=== PATIENT | male | born 1990 | race African-American/Black ===

== ENCOUNTER 2019-03-26 17:15 | Emergency (ER) | payer OTHER ==
[~2019-03-26 17:15] MED LIST: ISOVUE-370 76%-LOCM 1 ML ONE
--- NOTE | 2019-03-26 18:15 | CT ---
EXAM: Brain CTWithout contrast: HISTORY: Headache COMPARISON: None FINDINGS: No focal mass or midline shift. No intra or extra-axial hemorrhage. Sinuses and mastoids are clear of acute process. IMPRESSION: No mass or bleed or other significant acute intracranial process.
--- NOTE | 2019-03-26 18:26 | RAD ---
EXAM: Chest one view: HISTORY: Headache chest pain COMPARISON: 06/07/2017 FINDINGS: Minimal bilateral pleural thickening and costophrenic angle blunting, stable Heart size: Borderline enlarged. Lungs: Clear of acute process. No evidence for pneumonia, pleural effusion, acute edema, or pneumothorax, or other significant acute process. IMPRESSION: No significant acute intrathoracic disease.
[2019-03-26 18:29] LABS: #Lymphocytes 0.9 thou/uL (1.20-3.40); #Monocytes 0.3 thou/uL (0.11-0.59); #Neutrophils 2.5 thou/uL (1.40-6.50); %Basophils 0.4 % (0.0-1.0); %Eosinophils 0.1 % (0.0-10.0); %Lymphocytes 24.9 % (21.0-51.0); %Monocytes 7.6 % (0.0-10.0); Hemoglobin 13.1 g/dL (14.0-18.0); Mean Corpuscular HGB CONC 33.3 g/dL (32.0-36.0); Mean Platelet Volume 7.3 fL (7.4-10.4); Platelet Count 220 thou/uL (130-400); RBC Distribution Width 11.2 % (11.5-14.5); White Blood Cell (WBC) Count 3.7 thou/uL (4.8-10.8)
--- NOTE | 2019-03-26 18:47 | CT ---
EXAM: CT ANGIOGRAM OF THE CHEST 03/26/19 HISTORY: Headache. Chest pain. COMPARISON: None. TECHNIQUE: CT angiogram of the chest is performed in the axial plane. Three dimensional reformatted images are s ubmitted for interpretation. FINDINGS: Trachea and central bronchi are patent. There appears to be calcification with scarring and likely ch ronic change involving the right lower lobe adjacent to the right hemidiaphragm. There does appear to be associated soft tissue mass with solid attenuation measuring 2.9 x 1.9 cm. Additional linear opac ities in the lung parenchyma likely represents scar or atelectasis. No pleural effusion or pneumothorax. There are mildly enlarged left axillary lymph nodes and left subpectoral lymph nodes. [facility] lymph node measures 2.1 x 1.2 cm. No mediastinal mass, lymphadenopathy or hematoma. Heart size is within normal limits. No significant pericardial fluid. The visualized aorta has a normal caliber. No periaortic fat stranding. The visualized upper solid organs are unremarkable. Adequate contrast opacification of the pulmonary arterial system to the level of the segmental arteri es. No filling defect to suggest thromboembolism. IMPRESSION: 1. No evidence of pulmonary artery embolism to the level of the segmental arteries. 2. Presumed chronic changes involving the right lower lobe with a soft tissue mass with coarse c alcifications. Correlate clinically. 3. Enlarged left axillary lymph nodes which may be reactive. Correlate clinically. POS: PPP
[2019-03-26 18:51] LABS: ALT (SGPT) 38 U/L (8-55); AST (SGOT) 25 U/L (5-34); Albumin 4.2 g/dL (3.5-5.0); Alkaline Phosphatase 96 U/L (40-150); Anion Gap 16 mmol/L (10-20); BUN (Urea Nitrogen) 9 mg/dL (8.9-20.6); Bilirubin, Total 0.5 mg/dL (0.2-1.2); Calc. Creatinine Clearance 0 mL/min (70-130); Carbon Dioxide 22 mmol/L (22-29); Chloride 106 mmol/L (98-107); Estimated GFR-MDRD 87; Globulin 3.4 g/dL (2.4-3.5); Glucose 93 mg/dL (70-105); Potassium 3.8 mmol/L (3.5-5.1); Protein, Total 7.6 g/dL (6.0-8.3); Sodium 140 mmol/L (136-145)
[2019-03-26] MEDS ORDERED: Metoclopramide HCl 10 MG/2 ML VIAL ONE (19:49)
[2019-03-26] MEDS ORDERED: diphenhydrAMINE 50 MG/ML VIAL ONE (19:49)
[2019-03-26 21:47] LABS: Troponin I 0.019 ng/mL (< 0.028)
== END 2019-03-26 23:01 ==
LOC: ERS 17:15
DX: R07.9 Chest pain, unspecified (principal); R51 Headache; S00.81XA Abrasion of other part of head, initial encounter; I10 Essential (primary) hypertension; F41.9 Anxiety disorder, unspecified; Z79.899 Other long term (current) drug therapy; X58.XXXA Exposure to other specified factors, initial encounter
CPT/HCPCS: 36415; 70450; 71045; 71275; 80053; 83880; 84484; 85025; 93005; 96365; 96366; 96375; J1200; J2765; Q9966

== ENCOUNTER 2019-03-27 20:55 | Inpatient (IN) | payer OTHER ==
--- NOTE | 2019-03-27 21:24 | RAD ---
EXAM: Chest one view: HISTORY: Chest pain shortness of breath COMPARISON: 03/26/2019 FINDINGS: Stable bilateral pleural thickening and costophrenic angle blunting. Heart size: Within normal limits. Lungs: Clear of acute process. No evidence for pneumonia, pleural effusion, acute edema, or pneumothorax, or other significant acute process. IMPRESSION: No significant acute intrathoracic disease. Unchanged from prior study.
[2019-03-27] MEDS ORDERED: Ketorolac Tromethamine 30 MG/ML VIAL ONE (21:34)
[2019-03-27 21:51] LABS: #Lymphocytes 0.7 thou/uL (1.20-3.40); #Monocytes 0.2 thou/uL (0.11-0.59); #Neutrophils 2.3 thou/uL (1.40-6.50); %Basophils 0.2 % (0.0-1.0); %Eosinophils 0.4 % (0.0-10.0); %Lymphocytes 23.1 % (21.0-51.0); %Monocytes 4.7 % (0.0-10.0); %Neutrophils 71.5 % (42.0-75.0); Hemoglobin 12.2 g/dL (14.0-18.0); Mean Corpuscular HGB CONC 33.1 g/dL (32.0-36.0); Mean Corpuscular Hemoglobin 27.8 pg (27.0-31.0); Mean Corpuscular Volume 84.2 fL (78.0-98.0); Mean Platelet Volume 7.5 fL (7.4-10.4); Platelet Count 149 thou/uL (130-400); RBC Distribution Width 11.1 % (11.5-14.5); White Blood Cell (WBC) Count 3.2 thou/uL (4.8-10.8)
[2019-03-27 22:14] LABS: ALT (SGPT) 67 U/L (8-55); AST (SGOT) 80 U/L (5-34); Albumin 3.6 g/dL (3.5-5.0); Alkaline Phosphatase 96 U/L (40-150); Anion Gap 13 mmol/L (10-20); BUN (Urea Nitrogen) 9 mg/dL (8.9-20.6); Bilirubin, Total 1.4 mg/dL (0.2-1.2); CK (CPK) 262 U/L (30-200); Calc. Creatinine Clearance 0 mL/min (70-130); Calcium 7.9 mg/dL (7.8-10.44); Carbon Dioxide 18 mmol/L (22-29); Chloride 104 mmol/L (98-107); Estimated GFR-MDRD Greater than 90; Globulin 2.8 g/dL (2.4-3.5); Glucose 103 mg/dL (70-105); Potassium 3.3 mmol/L (3.5-5.1); Protein, Total 6.4 g/dL (6.0-8.3); Sodium 132 mmol/L (136-145)
[2019-03-27 23:24] LABS: Color Of CSF Supernatant COLORLESS (Colorless); Tube # 2; Unspun CSF Color COLORLESS (Colorless)
[2019-03-27] MEDS ORDERED: cefTRIAXone\\ROCEPHIN 2 GM VIAL ONE (23:29)
[2019-03-27 23:34] LABS: CSF Source CSF; Clarity Clear (Clear); RBC Count - Manual 2500 /cumm (None Seen); Tube # 4; WBC/NonHematics Count - Manual 0 /cumm (0-5)
[2019-03-27 23:39] LABS: CSF, Glucose 70 mg/dl (40-70); CSF, Protein 25 mg/dL (15-40)
[2019-03-27 23:46] LABS: CSF Source CSF; Clarity Clear (Clear); Tube # 1
[2019-03-27 23:47] LABS: RBC Count - Manual 192 /cumm (None Seen); WBC/NonHematics Count - Manual 2 /cumm (0-5)
[2019-03-27 23:58] LABS: Bilirubin Negative (Negative); Blood, Urine Negative (Negative); Clarity CLEAR (Clear); Glucose, Urine (Dipstick) Negative (Negative); Leukocyte Negative (Negative); Nitrite Negative (Negative); Protein, Urine (Dipstick) Negative (Neg-Trace)
[2019-03-28] MEDS ORDERED: Ondansetron PF 4 MG/2 ML Vial IVP PRN (01:32)
[2019-03-28] MEDS ORDERED: Ondansetron ODT 4 MG TAB SL PRN (01:32)
[2019-03-28] MEDS ORDERED: Acetaminophen 325 MG TAB PO PRN (01:32)
[2019-03-28 01:37] VITALS: BMI 34.0
[2019-03-28] MEDS ORDERED: Lactated Ringer's 1,000 ML IV SCH ×3 (02:00→18:45)
[2019-03-28] MEDS: Acetaminophen 325 MG TAB PO PRN ×2 (02:52→16:07)
[2019-03-28] MEDS: Ondansetron ODT 4 MG TAB PO PRN (03:18)
--- NOTE | 2019-03-28 03:29 | PDOC.FPRHP ---
- History of Present Illness Chief Complaint: fever, headache, dizziness History of Present Illness: Pt is a pleasant 28yo AAM with h/o of seizure disorder and HTN who presents with 3 day history of subjective fever with chills and night sweats, headache, dizziness upon standing, and nausea without vomiting. Headache is described as a dull pressure, over the entire head, rated 6/10, worsening with standing, and relieved by lying down and Tylenol. He also endorses non-bloody diarrhea up to 4 times daily for the past 2 days. He endorses blurred vision upon standing and mild neck stiffness, but no photophobia. He denies any known sick contacts, recently illness, or rashes. Patient was seen in ED yesterday with similar symptoms. At that time he was offered LP which was declined and pt opted to go home. On ROS he endorses mild, sharp, midsternal chest pain, occuring at rest, lasting 2-3 seconds, and associated with mild shortness of breath. Pain is not brought on by exercise. ED Course: In ED, LP showed red cells, WBC, and no bacteria on GS. Protein and glucose were WNL. CSF was sent for culture and pt was given rocephin to cover for possible meningitis. He was also given toradol which helped with his headache. All imaging was negative - Allergies/Adverse Reactions Allergies Allergy/AdvReac Type Severity Reaction Status Date / Time No Known Allergies Allergy Verified 03/28/19 02:32 - Home Medications Medication Instructions Recorded Confirmed Type FLUoxetine HCl [Prozac] 2 capsule PO HS 03/28/19 03/28/19 History Levetiracetam [levETIRAcetam] 500 mg PO BID 03/28/19 03/28/19 History Lisinopril [Zestril] 20 mg PO DAILY 03/28/19 03/28/19 History Metoprolol Tartrate 25 mg PO BID 03/28/19 03/28/19 History traZODone HCl [Trazodone HCl] 100 mg PO HS 03/28/19 03/28/19 History - History PMHx: HTN - controlled with metoprolol and lisinopril Seizures - controlled with Keppra, does not remember last time he had a seizure. PSHx: none FHx: Mother with HTN. No known family history of cardiac abnormalities. Social: Past history of tobacco use (1pk/week) but has since quit. No illicts or alcohol use. Currently incarcerated. - Review of Systems General: reports: fever/chills, night sweats, fatigue Eyes: reports: vision changes ENT: denies: nasal congestion, rhinorrhea Respiratory: reports: shortness of breath (associated with chest wall pain). denies: cough, congestion, exercise intolerance Cardiovascular: reports: chest pain. denies: palpitation, edema Gastrointestinal: reports: nausea, diarrhea. denies: vomiting, abdominal pain Genitourinary: denies: incontinence, dysuria Skin: denies: rashes, lesions Musculoskeletal: reports: stiffness. denies: pain, tenderness Neurological: denies: numbness, syncope, seizure, weakness - Vital signs BP: [108/66] HR: [100] RR: [16] Tmax: [98.7] Pox: [100]% on [RA] Wt: [122kg] - Physical Exam Constitutional: NAD, awake, alert and oriented, well developed HEENT: normocephalic and atraumatic, PERRLA, EOMI, no scleral icterus, grossly normal vision, grossly normal hearing, MMM Neck: supple, trachea midline Chest: no-tender to palpation Heart: RRR, normal S1/S2, no murmurs/rubs/gallops, pulses present Lungs: CTAB Abdomen: soft, non-tender, bowel sounds present Musculoskeletal: normal structure, normal tone Neurological: no focal deficit, CN II-XII intact, normal sensation Skin: no rash/lesions Psychiatric: normal mood and affect FMR H&P: Results - Labs Result Diagrams: 03/27/19 21:29 03/27/19 21: Lab results: WBC 3.2 thou/uL (4.8-10.8) L 03/27/19 21: Hgb 12.2 g/dL (14.0-18.0) L 03/27/19 21: Hct 37.0 % (42.0-52.0) L 03/27/19 21: MCV 84.2 fL (78.0-98.0) 03/27/19 21: Plt Count 149 thou/uL (130-400) 03/27/19 21: Neutrophils % 71.5 % (42.0-75.0) 03/27/19 21:29 Sodium 132 mmol/L (136-145) L 03/27/19 21:29 Potassium 3.3 mmol/L (3.5-5.1) L 03/27/19 21:29 Chloride 104 mmol/L (98-107) 03/27/19 21:29 Carbon Dioxide 18 mmol/L (22-29) L 03/27/19 21:29 BUN 9 mg/dL (8.9-20.6) 03/27/19 21:29 Creatinine 1.15 mg/dL (0.7-1.3) 03/27/19 21:29 Glucose 103 mg/dL (70-105) 03/27/19 21:29 Lactic Acid 1.7 mmol/L (0.5-2.2) 03/27/19 21:31 Calcium 7.9 mg/dL (7.8-10.44) 03/27/19 21:29 Total Bilirubin 1.4 mg/dL (0.2-1.2) H 03/27/19 21:29 AST 80 U/L (5-34) H 03/27/19 21:29 ALT 67 U/L (8-55) H 03/27/19 21:29 Alkaline Phosphatase 96 U/L (40-150) 03/27/19 21:29 Creatine Kinase 262 U/L (30-200) H 03/27/19 21:29 Serum Total Protein 6.4 g/dL (6.0-8.3) 03/27/19 21:29 Albumin 3.6 g/dL (3.5-5.0) 03/27/19 21:29 Urine Ketones Negative mg/dL (Negative) 03/27/19 23:40 Urine Blood Negative (Negative) 03/27/19 23:40 Urine Nitrite Negative (Negative) 03/27/19 23:40 Ur Leukocyte Esterase Negative (Negative) 03/27/19 23:40 - EKG Interpretation EKG: NSR, Rate 110, no ST or T wave changes, Normal axis. - Radiology Interpretation Chest x-ray Status: image reviewed by me, report reviewed by me Additional comment: Left costophrenic angle blunting. Overall increased bronchovascular markings bilaterally. No focal consolidation. FMR H&P: A/P - Problem List (1) Aseptic meningitis Current Visit: Yes Status: Suspected Code(s): G03.0 - NONPYOGENIC MENINGITIS (2) HTN (hypertension) Current Visit: Yes Status: Chronic Code(s): I10 - ESSENTIAL (PRIMARY) HYPERTENSION Qualifiers: Hypertension type: essential hypertension Qualified Code(s): I10 - Essential (primary) hypertension (3) Elevated LFTs Current Visit: Yes Status: Acute Code(s): R94.5 - ABNORMAL RESULTS OF LIVER FUNCTION STUDIES (4) Seizure disorder Current Visit: Yes Status: Chronic Code(s): G40.909 - EPILEPSY, UNSP, NOT INTRACTABLE, WITHOUT STATUS EPILEPTICUS (5) Anxiety with depression Current Visit: Yes Status: Chronic Code(s): F41.8 - OTHER SPECIFIED ANXIETY DISORDERS - Plan 1. Suspected aseptic meningitis - Given 2g Rocephin in ED. Will continue 1g IV daily until Cx negative. - Await CSF Cx and Blood Cx results - Will place on droplet precautions 2. Chronic HTN - Currently stable. Will restart home medications and monitor with q4h vitals. 3. Elevated LFT's - Unclear etiology at this time, yesterday these labs were normal. - Check HIV, Hep C, and RPR. - Recheck CMP in AM, consider further imaging pending results 4. Seizure Disorder - Chronic, Stable. Will continue home Keppra and monitor. 5. Depression and Anxiety -Chronic, stable. Will continue home Prozac and monitor. PPx SCD Diet heart healthy Code Full Disposition/LOS: Pt currently stable. Will expect hospitalization >48hours. Pending Cx results
[2019-03-28] MEDS: Ibuprofen 800 MG TAB PO PRN ×2 (05:16→23:38)
[2019-03-28 05:23] LABS: #Lymphocytes 0.4 thou/uL (1.20-3.40); #Monocytes 0.3 thou/uL (0.11-0.59); #Neutrophils 3.4 thou/uL (1.40-6.50); %Basophils 0.2 % (0.0-1.0); %Eosinophils 0.3 % (0.0-10.0); %Lymphocytes 10.2 % (21.0-51.0); %Monocytes 6.6 % (0.0-10.0); %Neutrophils 82.8 % (42.0-75.0); Hemoglobin 12.3 g/dL (14.0-18.0); Mean Corpuscular HGB CONC 32.7 g/dL (32.0-36.0); Mean Corpuscular Hemoglobin 27.5 pg (27.0-31.0); Mean Corpuscular Volume 84.1 fL (78.0-98.0); Mean Platelet Volume 7.5 fL (7.4-10.4); Platelet Count 137 thou/uL (130-400); RBC Distribution Width 11.1 % (11.5-14.5); Red Blood Cell (RBC) Count 4.49 mill/uL (4.70-6.10); White Blood Cell (WBC) Count 4.1 thou/uL (4.8-10.8)
[2019-03-28 05:43] LABS: ALT (SGPT) 67 U/L (8-55); AST (SGOT) 76 U/L (5-34); Albumin 3.5 g/dL (3.5-5.0); Alkaline Phosphatase 93 U/L (40-150); Anion Gap 11 mmol/L (10-20); BUN (Urea Nitrogen) 8 mg/dL (8.9-20.6); CK (CPK) 326 U/L (30-200); Calc. Creatinine Clearance 207 mL/min (70-130); Calcium 8.1 mg/dL (7.8-10.44); Carbon Dioxide 20 mmol/L (22-29); Chloride 107 mmol/L (98-107); Estimated GFR-MDRD Greater than 90; Globulin 2.7 g/dL (2.4-3.5); Glucose 102 mg/dL (70-105); Potassium 3.4 mmol/L (3.5-5.1); Protein, Total 6.2 g/dL (6.0-8.3); Sodium 135 mmol/L (136-145)
[2019-03-28 05:59] LABS: HIV (1/2) Antibody/Antigen Non-Reactive (NonReactive); HIV 1/2 INDEX 0.19 S/CO (<1.00); Hep C IgG Ab Non-Reactive (NonReactive)
[2019-03-28 06:06] LABS: Syphilis Antibody Index 14.24 S/CO (<1.00 Non-Reactive)
[2019-03-28] MEDS ORDERED: Magnesium 2 GM/50 ML 2 GM in Premix Bag 1 BAG IVPB SCH (08:30)
[2019-03-28] MEDS: Lisinopril 20 MG TAB PO SCH (08:43)
[2019-03-28] MEDS: levETIRAcetam 500 MG TAB PO SCH ×2 (08:43→20:06)
[2019-03-28] MEDS: Metoprolol Tartrate 25 MG TAB PO SCH ×2 (08:43→20:06)
[2019-03-28] MEDS ORDERED: Potassium Chloride 20 MEQ TAB PO SCH (09:00)
[2019-03-28 10:18] LABS: Syphilis Antibody INDETERMINATE (Nonreactive); Syphilis Titer Non-Reactive (Negative)
--- NOTE | 2019-03-28 11:39 | HP ---
CHIEF COMPLAINT: Headache and fever, possible meningitis. HISTORY OF PRESENT ILLNESS: Mr. Marcial is a 28-year-old incarcerated black man, who presented to our ER with fever, night sweats, and headache two days ago. At that time, he refused an LP. He returned with the same type symptoms and was admitted. LP was performed, it did show some red cells, very few white cells. No bacteria. It was consistent with a possible aseptic meningitis. He was initially started on antibiotics, but these will be discontinued if cultures are returned negative. PHYSICAL EXAMINATION: In the event on physical exam; VITAL SIGNS: His blood pressure is 108/66, his heart rate is 95. He is currently afebrile and his room air pulse ox is 100%. GENERAL: This morning, he is completely awake, alert, in no distress. NECK: Supple. CARDIAC: Heart rhythm regular. No gallop or murmur noted. LUNGS: Clear without rales or wheezes. ABDOMEN: Flat and soft. No guarding, rebound, or rigidity. NEUROLOGIC: Demonstrates no focal deficits. PSYCHIATRIC: He is awake, alert, appears in no distress. LABORATORY DATA: White count 3200, hemoglobin 12.2, and hematocrit 37.0 with an MCV of 84. Chemistries; sodium 132, potassium 3.3, chloride 104, bicarb initially 18 and now 20, BUN 9, and creatinine 1.15. Slight elevations of his AST to 80 and ALT to 67. CK elevated at 326. SEROLOGIES: His sepsis serology is currently indeterminate, but his RPR is negative. Treponema pallidum is pending. Hep C is negative. HIV is negative. ASSESSMENT: Possible aseptic meningitis. PLAN: Continue antibiotics until cultures returned. Initiate workup for elevated LFTs, which can be completed as an outpatient. Job ID: [id number]
--- NOTE | 2019-03-28 12:29 | CT ---
CT BRAIN NONCONTRAST: Date: 03/28/19 Time: 1014 hours HISTORY: 28-year-old male with headache. FINDINGS: The ventricles are normal in size and configuration. There is no midline shift or any other mass eff ect. There is no evidence of acute intracranial hemorrhage, large cortical infarct, or extraaxial fl uid collection. The horner matter /white matter differentiation is maintained. The calvarium is intac t. The tympanomastoid cavities, and the upper portions of the paranasal sinuses included in these im ages, are grossly clear. IMPRESSION: Normal. jn [] POS: [place]
[2019-03-28 12:37] LABS: HBSAg Index 0.29 S/CO (0-0.99); Hep B Surf Ag Non-Reactive S/CO (NonReactive)
[2019-03-28 14:45] LABS: HBCM Index 0.06 S/CO (0-0.79); Hep B Surf AB Non-Reactive (NonReactive); Hepatitis B Core IgM Abs Non-Reactive (NonReactive)
--- NOTE | 2019-03-28 15:56 | ULT ---
GALLBLADDER ULTRASOUND: INDICATIONS: Elevated liver function enzymes. FINDINGS: No focal hepatic lesion or acute gallbladder pathology. The common duct is normal, measuring 2 mm. Mao sign is reported as negative. No ascites. IMPRESSION: No acute gallbladder pathology. POS: [place]
[2019-03-28] MEDS: FLUoxetine HCl 20 MG CAP PO SCH (20:05)
[2019-03-28] MEDS: traZODone HCl 50 MG TAB PO SCH (20:05)
[2019-03-28] MEDS ORDERED: cefTRIAXone\\ROCEPHIN 1 GM in Sodium Chloride 0.9% 100 ML IVPB SCH (23:00)
[2019-03-29] MEDS: Ondansetron ODT 4 MG TAB PO PRN ×2 (00:11→11:03)
[2019-03-29 05:36] LABS: ALT (SGPT) 65 U/L (8-55); AST (SGOT) 68 U/L (5-34); Albumin 3.4 g/dL (3.5-5.0); Alkaline Phosphatase 97 U/L (40-150); Anion Gap 15 mmol/L (10-20); BUN (Urea Nitrogen) 7 mg/dL (8.9-20.6); Bilirubin, Total 0.9 mg/dL (0.2-1.2); CK (CPK) 280 U/L (30-200); Calc. Creatinine Clearance 221 mL/min (70-130); Calcium 8.6 mg/dL (7.8-10.44); Carbon Dioxide 18 mmol/L (22-29); Chloride 108 mmol/L (98-107); Estimated GFR-MDRD Greater than 90; Globulin 2.9 g/dL (2.4-3.5); Glucose 86 mg/dL (70-105); Magnesium 1.6 mg/dL (1.6-2.6); Potassium 3.8 mmol/L (3.5-5.1); Protein, Total 6.3 g/dL (6.0-8.3); Sodium 137 mmol/L (136-145)
[2019-03-29 05:46] LABS: #Lymphocytes 0.7 thou/uL (1.20-3.40); #Monocytes 0.2 thou/uL (0.11-0.59); #Neutrophils 1.4 thou/uL (1.40-6.50); %Basophils 0.6 % (0.0-1.0); %Eosinophils 0.2 % (0.0-10.0); %Lymphocytes 29.1 % (21.0-51.0); %Monocytes 7.7 % (0.0-10.0); %Neutrophils 62.4 % (42.0-75.0); Hemoglobin 11.8 g/dL (14.0-18.0); Mean Corpuscular HGB CONC 32.8 g/dL (32.0-36.0); Mean Corpuscular Hemoglobin 27.8 pg (27.0-31.0); Mean Corpuscular Volume 84.7 fL (78.0-98.0); Mean Platelet Volume 8.7 fL (7.4-10.4); Platelet Count 117 thou/uL (130-400); Platelet Morphology Comment Appears Decreased; RBC Distribution Width 11.3 % (11.5-14.5); Red Blood Cell (RBC) Count 4.23 mill/uL (4.70-6.10); White Blood Cell (WBC) Count 2.3 thou/uL (4.8-10.8)
[2019-03-29] MEDS: Metoprolol Tartrate 25 MG TAB PO SCH ×3 (08:07→22:15)
[2019-03-29] MEDS: levETIRAcetam 500 MG TAB PO SCH ×2 (08:07→21:48)
[2019-03-29] MEDS: Lisinopril 20 MG TAB PO SCH (08:07)
--- NOTE | 2019-03-29 08:59 | PDOC.FM ---
- Subjective Subjective: pt resting comfortably in bed, reports minimal headache, tolerating PO. complaining about handcuffs - Objective Vital Signs & Weight: Vital Signs (12 hours) Temp Pulse Resp BP BP BP Pulse Ox 03/29/19 08:07 124/76 03/29/19 07:46 99.2 F 89 18 124/76 99 03/29/19 04:00 99.2 F 91 20 114/75 96 03/29/19 00:00 102.2 F H 114 H 20 100 03/28/19 23:39 101.1 F H Weight Admit Weight 123.519 kg Weight 123.519 kg Result Diagrams: 03/29/19 04:44 03/29/19 04:44 Phys Exam - Physical Examination Constitutional: NAD HEENT: moist MMs Neck: no JVD Gastrointestinal: no distention Musculoskeletal: no edema Neurological: moves all 4 limbs Psychiatric: normal affect Skin: no rash Dx/Plan (1) Elevated LFTs Code(s): R94.5 - ABNORMAL RESULTS OF LIVER FUNCTION STUDIES Status: Acute (2) HTN (hypertension) Code(s): I10 - ESSENTIAL (PRIMARY) HYPERTENSION Status: Chronic Qualifiers: Hypertension type: essential hypertension Qualified Code(s): I10 - Essential (primary) hypertension (3) Seizure disorder Code(s): G40.909 - EPILEPSY, UNSP, NOT INTRACTABLE, WITHOUT STATUS EPILEPTICUS Status: Chronic - Plan Plan: meningitis r/o - Given 2g Rocephin in ED, continue 1g IV daily until 24hr Cx negative. - CSF Cx and Blood Cx NGTD - unlikely meningitis at this point, URI possible - evaluate for other causes 2. Chronic HTN - Currently stable, cont home meds 3. Elevated LFT's - most likely fatty liver, HIV, Hep a/b/C neg - T. Pallidum indeterminate, confirmatory test pending - RUQ wnl - monitor CMP 4. Seizure Disorder - Chronic, Stable. Will continue home Keppra and monitor. 5. Depression and Anxiety -Chronic, stable. Will continue home Prozac and monitor. PPx SCD Diet heart healthy Code Full dispo: further evaluation for low WBC/fever today, DC 1-2 days
[2019-03-29] MEDS ORDERED: Recombivax (HEP-B) 5 MCG/0.5 ML VIAL IM ONE ×2 (09:38→14:00)
[2019-03-29 10:36] LABS: Reticulocyte Count 1.1 % (0.5-1.5)
[2019-03-29 10:41] LABS: Hemoglobin 12.2 g/dL (14.0-18.0); Mean Corpuscular HGB CONC 31.8 g/dL (32.0-36.0); Mean Corpuscular Volume 84.8 fL (78.0-98.0); Mean Platelet Volume 8.7 fL (7.4-10.4); Platelet Count 118 thou/uL (130-400); RBC Distribution Width 11.3 % (11.5-14.5); White Blood Cell (WBC) Count 2.8 thou/uL (4.8-10.8)
[2019-03-29 10:46] LABS: INR-International Normal Ratio 1.1; Prothrombin Time 14.4 SEC (12.0-14.7)
[2019-03-29 10:52] LABS: PTT 22.6 SEC (22.9-36.1)
[2019-03-29] MEDS: Acetaminophen 325 MG TAB PO PRN ×2 (11:03→19:51)
--- NOTE | 2019-03-29 11:44 | PRG ---
DATE OF SERVICE: 03/29/2019 Mr. Marcial is still running temperature, although his cultures so far are negative. He also has a very mild pancytopenia with a low white count, slight anemia with normocytic indices and a platelet count that is slowly dropping. These may all be consistent with a viral illness, but we are ordering some more studies to look into this further. We may eventually need to consult heme on-call. We will also check a flu swab. Job ID: [id number]
[2019-03-29 12:10] LABS: Band 41 % (5-11); Lymphocytes 23 % (21-51); MDiff Complete? YES; Monocytes 5 % (0-10); Neutrophil 31 % (42-75); Platelet Morphology Comment Appears Decreased; Polychromasia SLIGHT = 2-3 cells (100X) (0-2/hpf)
[2019-03-29] MEDS ORDERED: Lactated Ringer's 1,000 ML IV SCH ×2 (12:15→17:00)
[2019-03-29] MEDS: cefTRIAXone\\ROCEPHIN 2 GM in Sodium Chloride 0.9% 100 ML IVPB SCH (21:47)
[2019-03-29] MEDS: traZODone HCl 50 MG TAB PO SCH (21:48)
[2019-03-29] MEDS: FLUoxetine HCl 20 MG CAP PO SCH (21:48)
[2019-03-30] MEDS: Acetaminophen 325 MG TAB PO PRN ×2 (05:57→20:21)
[2019-03-30 07:37] LABS: #Basophils 0.1 thou/uL (0.0-0.2); #Lymphocytes 1.2 thou/uL (1.20-3.40); #Monocytes 0.6 thou/uL (0.11-0.59); #Neutrophils 2.5 thou/uL (1.40-6.50); %Basophils 1.2 % (0.0-1.0); %Eosinophils 0.1 % (0.0-10.0); %Lymphocytes 27.1 % (21.0-51.0); %Monocytes 13.5 % (0.0-10.0); %Neutrophils 58.2 % (42.0-75.0); Hemoglobin 11.7 g/dL (14.0-18.0); Mean Corpuscular HGB CONC 32.6 g/dL (32.0-36.0); Mean Corpuscular Hemoglobin 27.2 pg (27.0-31.0); Mean Corpuscular Volume 83.3 fL (78.0-98.0); Mean Platelet Volume 8.1 fL (7.4-10.4); Platelet Count 139 thou/uL (130-400); RBC Distribution Width 11.4 % (11.5-14.5); Red Blood Cell (RBC) Count 4.29 mill/uL (4.70-6.10); White Blood Cell (WBC) Count 4.3 thou/uL (4.8-10.8)
--- NOTE | 2019-03-30 07:49 | PDOC.FM ---
- Subjective Subjective: pt resting comfortably in bed, reports feeling poorly but denies headache, nausea, or vomiting - Objective Vital Signs & Weight: Vital Signs (12 hours) Temp Pulse Resp BP BP Pulse Ox 03/30/19 07:27 99.5 F 93 20 111/73 94 L 03/30/19 05:45 101.2 F H 03/29/19 22:16 98.7 F 127/75 03/29/19 20:09 100 Weight Admit Weight 123.519 kg Weight 123.519 kg I&O: 03/29/19 03/30/19 03/31/19 06:59 06:59 06:59 Intake Total 2250 Balance 2250 Result Diagrams: 03/30/19 07:15 03/30/19 07:15 Phys Exam - Physical Examination Constitutional: NAD HEENT: moist MMs Neck: no JVD Gastrointestinal: no distention Musculoskeletal: no edema Neurological: moves all 4 limbs Psychiatric: normal affect Skin: no rash Dx/Plan (1) Elevated LFTs Code(s): R94.5 - ABNORMAL RESULTS OF LIVER FUNCTION STUDIES Status: Acute (2) HTN (hypertension) Code(s): I10 - ESSENTIAL (PRIMARY) HYPERTENSION Status: Chronic Qualifiers: Hypertension type: essential hypertension Qualified Code(s): I10 - Essential (primary) hypertension (3) Seizure disorder Code(s): G40.909 - EPILEPSY, UNSP, NOT INTRACTABLE, WITHOUT STATUS EPILEPTICUS Status: Chronic - Plan Plan: unidentified viral illness - consider aseptic meningitis/enterovirus vs viral URI vs parvovirus - CSF Cx and Blood Cx NGTD, procal uptrending - Given 2g Rocephin in ED, continued, consider adding additional coverage today , repeat LP - additional work up reveals apparent hemolysis of all cell lines- likely related to viral illness - improved today, continue to monitor, fever curve downtrending as well - pt clinically stable Chronic HTN - Currently stable, cont home meds 3. Elevated LFT's - most likely fatty liver, HIV, Hep a/b/C neg - T. Pallidum indeterminate, confirmatory test pending - RUQ wnl - monitor CMP 4. Seizure Disorder - Chronic, Stable. Will continue home Keppra and monitor. 5. Depression and Anxiety -Chronic, stable. Will continue home Prozac and monitor. PPx SCD Diet heart healthy Code Full dispo: further evaluation and monitoring today
[2019-03-30 07:52] LABS: ALT (SGPT) 70 U/L (8-55); AST (SGOT) 70 U/L (5-34); Albumin 3.6 g/dL (3.5-5.0); Alkaline Phosphatase 108 U/L (40-150); Anion Gap 14 mmol/L (10-20); BUN (Urea Nitrogen) 7 mg/dL (8.9-20.6); Bilirubin, Total 0.8 mg/dL (0.2-1.2); Calc. Creatinine Clearance 204 mL/min (70-130); Carbon Dioxide 22 mmol/L (22-29); Chloride 105 mmol/L (98-107); Estimated GFR-MDRD Greater than 90; Globulin 3.2 g/dL (2.4-3.5); Glucose 91 mg/dL (70-105); Potassium 3.7 mmol/L (3.5-5.1); Protein, Total 6.8 g/dL (6.0-8.3); Sodium 137 mmol/L (136-145)
[2019-03-30] MEDS: levETIRAcetam 500 MG TAB PO SCH ×2 (09:37→20:20)
[2019-03-30] MEDS: Lisinopril 20 MG TAB PO SCH (09:39)
[2019-03-30] MEDS: Metoprolol Tartrate 25 MG TAB PO SCH ×2 (09:40→20:20)
[2019-03-30] MEDS ORDERED: Lactated Ringer's 1,000 ML IV SCH (10:15)
[2019-03-30] MEDS ORDERED: cefTRIAXone\\ROCEPHIN 2 GM in Sodium Chloride 0.9% 100 ML IVPB SCH (10:45)
[2019-03-30] MEDS: cefTRIAXone\\ROCEPHIN 2 GM in Sodium Chloride 0.9% 100 ML IVPB SCH ×2 (12:02→20:15)
--- NOTE | 2019-03-30 12:46 | PRG ---
DATE OF SERVICE: 03/30/2019 SUBJECTIVE: Mr. Marcial continues to run fevers even at times up to 103. His CBC seems to be returning to normal, but given the fact that he is remaining febrile with an abnormal CBC and with no source of infection. I would recommend we consult Dr. Judd for some input. I would also add haptoglobin to check for hemolytic anemia given his very high LDH. His physical exam, however, remains unchanged. There appears to be no focal signs of infection. He does not have a headache and has a clear sensorium, so I doubt that we need to repeat an LP. As stated earlier, all cultures so far were negative. We will add vancomycin as a precaution until input from Dr. Judd. Job ID: [id number]
[2019-03-30 17:14] LABS: MONO NEGATIVE CONTROL ZONE White (Negative) (White); MONO POSITIVE CONTROL Pink Line (Positive) (PINK/RED); Mononucleosis NEGATIVE (NEGATIVE)
[2019-03-30] MEDS: FLUoxetine HCl 20 MG CAP PO SCH (20:20)
[2019-03-30] MEDS: traZODone HCl 50 MG TAB PO SCH (20:20)
[2019-03-30] MEDS ORDERED: Vancomycin HCl 1.75 GM in Sodium Chloride 0.9% 500 ML IVPB SCH (23:00)
[2019-03-31 06:59] LABS: ALT (SGPT) 140 U/L (8-55); AST (SGOT) 186 U/L (5-34); Albumin 3.4 g/dL (3.5-5.0); Alkaline Phosphatase 109 U/L (40-150); Anion Gap 12 mmol/L (10-20); BUN (Urea Nitrogen) 6 mg/dL (8.9-20.6); Band 2 % (5-11); Bilirubin, Total 0.5 mg/dL (0.2-1.2); Calc. Creatinine Clearance 237 mL/min (70-130); Calcium 8.5 mg/dL (7.8-10.44); Carbon Dioxide 26 mmol/L (22-29); Chloride 107 mmol/L (98-107); Estimated GFR-MDRD Greater than 90; Globulin 3.2 g/dL (2.4-3.5); Glucose 91 mg/dL (70-105); Hemoglobin 11.9 g/dL (14.0-18.0); Lymphocytes 61 % (21-51); MDiff Complete? YES; Mean Corpuscular Hemoglobin 27.3 pg (27.0-31.0); Mean Corpuscular Volume 85.2 fL (78.0-98.0); Mean Platelet Volume 8.3 fL (7.4-10.4); Monocytes 17 % (0-10); Neutrophil 20 % (42-75); Platelet Count 146 thou/uL (130-400); Platelet Morphology Comment Appears Adequate; Potassium 3.8 mmol/L (3.5-5.1); Protein, Total 6.6 g/dL (6.0-8.3); RBC Distribution Width 11.5 % (11.5-14.5); Red Blood Cell (RBC) Count 4.38 mill/uL (4.70-6.10); Sodium 141 mmol/L (136-145); White Blood Cell (WBC) Count 3.3 thou/uL (4.8-10.8)
--- NOTE | 2019-03-31 07:35 | PDOC.FM ---
- Subjective Subjective: pt resting comfortably in bed, eating. denies fever/chills/headache - Objective Vital Signs & Weight: Vital Signs (12 hours) Temp Pulse Resp BP Pulse Ox 03/31/19 00:00 98.2 F 03/30/19 19:49 98.4 F 86 20 141/84 H 98 Weight Admit Weight 123.519 kg Weight 123.519 kg I&O: 03/30/19 03/31/19 04/01/19 06:59 06:59 06:59 Intake Total 2250 3200 Balance 2250 3200 Result Diagrams: 03/31/19 04:34 03/31/19 04:34 Phys Exam - Physical Examination Constitutional: NAD HEENT: moist MMs Neck: no JVD Gastrointestinal: no distention Musculoskeletal: no edema Neurological: normal sensation Psychiatric: normal affect Skin: no rash Dx/Plan (1) Elevated LFTs Code(s): R94.5 - ABNORMAL RESULTS OF LIVER FUNCTION STUDIES Status: Acute (2) HTN (hypertension) Code(s): I10 - ESSENTIAL (PRIMARY) HYPERTENSION Status: Chronic Qualifiers: Hypertension type: essential hypertension Qualified Code(s): I10 - Essential (primary) hypertension (3) Seizure disorder Code(s): G40.909 - EPILEPSY, UNSP, NOT INTRACTABLE, WITHOUT STATUS EPILEPTICUS Status: Chronic - Plan Plan: Fever without a source - consider aseptic meningitis/enterovirus vs viral URI vs parvovirus - CSF Cx and Blood Cx NGTD, procal + - Given 2g Rocephin in ED, continued. vanc added 03/30 - ID consulted, Dr. Judd, appreciate recs - improved today, continue to monitor, fever curve downtrending as well - pt clinically improving Pancytopenia - additional work up reveals apparent hemolysis of all cell lines- likely related to viral illness - Heme/Onc consulted, Dr. Myers, appreciate recs - recommend continued monitoring Chronic HTN - Currently stable, cont home meds Elevated LFT's - most likely fatty liver, HIV, Hep a/b/C neg - T. Pallidum indeterminate, confirmatory test pending - RUQ wnl - monitor CMP Seizure Disorder - Chronic, Stable. Will continue home Keppra and monitor. Depression and Anxiety -Chronic, stable. Will continue home Prozac and monitor. PPx SCD Diet heart healthy Code Full dispo: further evaluation and monitoring today
[2019-03-31] MEDS: Metoprolol Tartrate 25 MG TAB PO SCH ×2 (07:48→21:22)
[2019-03-31] MEDS: Lisinopril 20 MG TAB PO SCH (07:48)
[2019-03-31] MEDS: levETIRAcetam 500 MG TAB PO SCH ×2 (07:48→21:22)
[2019-03-31] MEDS: cefTRIAXone\\ROCEPHIN 2 GM in Sodium Chloride 0.9% 100 ML IVPB SCH (07:48)
--- NOTE | 2019-03-31 10:45 | PRG ---
DATE OF SERVICE: 03/31/2019 I have reviewed the note of Dr. Yann Turcios, and then, agree with his assessment and plan. Mr. Marcial looks and feels much better this morning. He has no headache. His sensorium is normal. He is afebrile. His CBC seems to be returning to normal and platelets are now up to 146,000. In retrospect, it appears that Mr. Marcial had some type of viral syndrome causing all of the aforementioned maladies. In the event, clinically, he is greatly improved and will likely be discharged tomorrow. All cultures remain negative. Job ID: [id number]
--- NOTE | 2019-03-31 18:43 | CON ---
DATE OF CONSULTATION: 03/31/2019 REASON FOR CONSULTATION: Fever with headaches. HISTORY OF PRESENT ILLNESS: A 28-year-old patient with a history of hypertension, seizure disorder, and bipolar disorder or depression, who was in the usual state until about a week before when he developed fever and headaches at the [facility] unit, where he has been incarcerated. After a few days, he was brought to the emergency room and released after brief workup and then brought back and admitted. Initial evaluation demonstrated a temperature 102. His neuro exam was nonfocal. Heart and abdomen examination was normal. His initial white cell count is 4.1 with 41% bands, AST 80, ALT 67, and alkaline phosphatase 262. He had a spinal fluid evaluation and WBC count was 2, the RBC was 2500. This is indicated as the fourth tube, but probably this was mislabeled as the fourth tube. The first two was only 2 RBCs. HIV and hepatitis C serology were negative. CT of head did not show any abnormalities. Currently, he is feeling better. Only minor headaches. No visual symptoms or nasal stuffiness, which is chronic. No sore throat, odynophagia, or dysphagia. No dental pain. No back pain. He had transient pleuritic-type mid sternal chest pain. No cough or sputum production. No abdominal pain or diarrhea. No genitourinary symptoms. No joint symptoms. No skin disorder. PAST MEDICAL HISTORY: Hypertension, seizure disorder, and bipolar disorder. PAST SURGICAL HISTORY: Negative. SOCIAL HISTORY: Currently incarcerated. No drug use. No smoking history. ALLERGIES: NONE. FAMILY HISTORY: Noncontributory. CURRENT MEDICATIONS: 1. Ceftriaxone. 2. Prozac. 3. Motrin. 4. Keppra. 5. Zestril. 6. Lopressor. 7. Zofran. 8. Vancomycin. PHYSICAL EXAMINATION: VITAL SIGNS: T-max 102, he has been afebrile since. Blood pressure 130/80, pulse 72, and respirations 20. SKIN: Normal. There is no lymphadenopathy. HEENT: Ocular movements are conjugate. Pupils are equal. Nasal passages are patent. Ear exam normal. Oral cavity normal. NECK: Supple. No jugular vein distention. LUNGS: Symmetric. Clear breath sounds. HEART: S1 and S2, regular rate. ABDOMEN: Soft. Not distended or tender. No ascites. No bladder distention. EXTREMITIES: Moves all extremities equally. Cognitive function appears to be intact. LABORATORY DATA: White cell count 4.1 and now 3.3, hemoglobin 12.3. He had 80% neutrophils on arrival, now is down to 20% neutrophils, 61% lymphocytes, 17% monocytes. Chemistry with elevated liver enzymes. Urinalysis was normal and the glucose, protein, and CSF were normal. Syphilis indeterminate. RPR negative and HIV hepatitis serology negative. The patient had an abdomen ultrasound, which was normal and a chest x-ray, which was normal, brain CT was normal as well. ASSESSMENT: Febrile illness with abnormal liver function tests and moderate headache. The CSF evaluation probably reflects the accidental puncture of vessel and then intermixing of blood in the initial CSF samples. I believe the labeling of the CSF tube samples was wrong and probably the one labeled fourth tube is probably the first and vice versa. At this point, I would discontinue antimicrobial therapy. The differential diagnosis includes likely a viral infection probably Wagner-King virus or cytomegalovirus. We will submit serology for both and respiratory virus PCR panel. Discontinue droplet precautions. Job ID: [id number] [facility]
[2019-03-31] MEDS: Ondansetron ODT 4 MG TAB PO PRN (21:21)
[2019-03-31] MEDS: FLUoxetine HCl 20 MG CAP PO SCH (21:22)
[2019-03-31] MEDS: traZODone HCl 50 MG TAB PO SCH (21:22)
[2019-04-01 05:42] LABS: ALT (SGPT) 128 U/L (8-55); AST (SGOT) 108 U/L (5-34); Albumin 3.3 g/dL (3.5-5.0); Alkaline Phosphatase 100 U/L (40-150); Anion Gap 13 mmol/L (10-20); BUN (Urea Nitrogen) 7 mg/dL (8.9-20.6); Bilirubin, Total 0.4 mg/dL (0.2-1.2); Calc. Creatinine Clearance 218 mL/min (70-130); Calcium 8.9 mg/dL (7.8-10.44); Carbon Dioxide 26 mmol/L (22-29); Chloride 106 mmol/L (98-107); Estimated GFR-MDRD Greater than 90; Globulin 3.2 g/dL (2.4-3.5); Glucose 88 mg/dL (70-105); Potassium 3.6 mmol/L (3.5-5.1); Protein, Total 6.5 g/dL (6.0-8.3); Sodium 141 mmol/L (136-145)
[2019-04-01 06:06] VITALS: TEMP 98.3
--- NOTE | 2019-04-01 08:04 | PDOC.FM ---
- Subjective Subjective: pt resting comfortably in bed, afebrile, tolerating diet, denies headache - Objective Vital Signs & Weight: Vital Signs (12 hours) Temp Pulse Resp BP Pulse Ox 04/01/19 08:00 98.3 F 76 16 123/84 99 04/01/19 05:30 98.3 F 73 16 132/83 95 04/01/19 00:00 98.4 F 76 16 111/73 95 03/31/19 21:58 98.2 F 66 18 138/85 98 Weight Admit Weight 123.519 kg Weight 123.519 kg I&O: 03/31/19 04/01/19 04/02/19 06:59 06:59 06:59 Intake Total 3200 2900 Balance 3200 2900 Result Diagrams: 03/31/19 04:34 04/01/19 04:16 Phys Exam - Physical Examination Constitutional: NAD HEENT: moist MMs Neck: no JVD Gastrointestinal: no distention Musculoskeletal: no edema Neurological: moves all 4 limbs Psychiatric: normal affect Skin: no rash Dx/Plan (1) Elevated LFTs Code(s): R94.5 - ABNORMAL RESULTS OF LIVER FUNCTION STUDIES Status: Acute (2) HTN (hypertension) Code(s): I10 - ESSENTIAL (PRIMARY) HYPERTENSION Status: Chronic Qualifiers: Hypertension type: essential hypertension Qualified Code(s): I10 - Essential (primary) hypertension (3) Seizure disorder Code(s): G40.909 - EPILEPSY, UNSP, NOT INTRACTABLE, WITHOUT STATUS EPILEPTICUS Status: Chronic - Plan Plan: undifferentiated viral illness - consider aseptic meningitis/enterovirus vs viral URI vs parvovirus - CSF Cx and Blood Cx NGTD, procal + - Given 2g Rocephin in ED, continued. vanc added 03/30. DC both - ID consulted, Dr. Judd, appreciate recs - improved today, continue to monitor, fever curve downtrending as well - pt clinically improving Pancytopenia - additional work up reveals apparent hemolysis of all cell lines- likely related to viral illness - Heme/Onc consulted, Dr. Myers, appreciate recs - recommend continued monitoring Chronic HTN - Currently stable, cont home meds Elevated LFT's - most likely fatty liver, HIV, Hep a/b/C neg - T. Pallidum indeterminate, confirmatory test pending - RUQ wnl - monitor CMP Seizure Disorder - Chronic, Stable. Will continue home Keppra and monitor. Depression and Anxiety -Chronic, stable. Will continue home Prozac and monitor. PPx SCD Diet heart healthy Code Full dispo: consider DC today
[2019-04-01] MEDS: levETIRAcetam 500 MG TAB PO SCH (08:20)
[2019-04-01] MEDS: Lisinopril 20 MG TAB PO SCH (08:20)
[2019-04-01] MEDS: Metoprolol Tartrate 25 MG TAB PO SCH (08:21)
[2019-04-01] MEDS: Ibuprofen 800 MG TAB PO PRN (08:21)
[2019-04-01] MEDS: Acetaminophen 325 MG TAB PO PRN (08:21)
[2019-04-01 08:23] VITALS: BP 132/87
--- NOTE | 2019-04-01 11:24 | PRG ---
DATE OF SERVICE: 04/01/2019 Mr. Marcial continues to look and feel much improved. He was seen yesterday by Dr. Judd, and we appreciate his input. Dr. Judd feels the patient is likely recovering from a viral illness. His CBC seems to be returning to normal. He is afebrile, and we will discharge him later today. He will need followup with the [facility] to continue to trend his liver enzymes and recheck his CBC. Job ID: [id number]
--- NOTE | 2019-04-01 20:39 | DIS ---
DATE OF ADMISSION: 03/28/2019 DATE OF DISCHARGE: 04/01/2019 DISCHARGE ATTENDING: Dr. Fazal Traylor. RESIDENT: Dr. Yann Turcios. CONSULTS: 1. Dr. Ronnie Judd, Infectious Disease. 2. Dr. Leighton Myers, Hematology/Oncology. PROCEDURES: None. IMAGING: Chest x-ray is significant for no acute cardiothoracic abnormality. Abdominal ultrasound is significant for no acute gallbladder findings or liver pathology. CT is negative for acute intracranial pathology. DISCHARGE MEDICATIONS: 1. Metoprolol 25 mg p.o. b.i.d. 2. Lisinopril 20 mg p.o. daily. 3. Levetiracetam 500 mg p.o. b.i.d. 4. Prozac 2 capsules p.o. at bedtime. 5. Trazodone 100 mg p.o. at bedtime. DISCHARGE DIAGNOSES: PRIMARY DIAGNOSIS: Undifferentiated viral illness. SECONDARY DIAGNOSES: 1. Pancytopenia. 2. Chronic hypertension. 3. Elevated liver function tests/transaminitis. 4. Seizure disorder. 5. Depression and anxiety. HISTORY OF PRESENT ILLNESS AND HOSPITAL COURSE: Mr. Marcial is a 28-year-old male, who presents to the emergency department with a past medical history significant for seizure disorder, hypertension. He has had at that time 3 days of subjective fever, chills, night sweats, headache, dizziness, nausea, and vomiting. He described the headache at that time as dull over his entire head with associated neck stiffness, relieved somewhat by lying down and with Tylenol. Also, additionally reports nonbloody diarrhea and blurred vision. No photophobia. In the emergency room, he received a lumbar puncture with a mixture of red blood cells and white blood cells, but no bacteria on Gram stain. Proteins and glucose were within normal limits at that time. It was still concerned that the patient had a possible meningitis, so was started on Rocephin and deemed that the patient should be admitted to the hospital for continued monitoring. The patient was admitted to the hospital, found to have elevated LFTs, most likely secondary to viral illness. The patient continued to have fever. It was noted on CBC that a pancytopenia was present. Peripheral blood smear was reviewed by pathologist and Hematology/Oncology consult was recommended. Dr. Myers reviewed the patient's lab work and recommended continued monitoring. The patient continued to have fever despite being on Rocephin and elevated procalcitonin was present and low white count. Infectious Disease , Dr. Judd, was consulted at that time and agreed that most likely related to viral illness and recommended discontinuing of antibiotics. The patient's fever and procalcitonin were downtrended. The patient remained stable, vital signs stable , non-tachycardic, determined that source of illness was most likely a virus either tolerating PO. Results were still pending on that and will be reviewed and sent to intermediate once resulted. A bacterial or tuberculosis disease is unlikely at this point. Additionally, the patient's transaminitis remained present, most likely due to viral illness, but will need to be followed up with repeat LFTs in the next 4 to 6 weeks. DISCHARGE INSTRUCTIONS: 1. Location: [facility]. 2. Activity: As tolerated. 3. Diet: Heart healthy, low sodium. 4. Followup: Follow up with [facility] in the next 5 to 7 days. Job ID: [id number] [facility]
[2019-04-02 09:08] LABS: EBV Early Antigen (EA) IgG AB <9.0 U/mL (0.0-8.9); EBV VCA IgG >600.0 U/mL (0.0-17.9); EBV VCA IgM <36.0 U/mL (0.0-35.9)
--- NOTE | 2019-04-02 20:28 | EKG ---
Test Reason : Blood Pressure : / mmHG Vent. Rate : 110 BPM Atrial Rate : 110 BPM P-R Int : 148 ms QRS Dur : 084 ms QT Int : 322 ms P-R-T Axes : 023 074 015 degrees QTc Int : 435 ms Sinus tachycardia Otherwise normal ECG Confirmed by DEISY RACHEL D.O. ([id number]), editor city YAJAIRA LEONG ([id number] on 04/02/2019 8:27:48 PM Referred By: Confirmed By:DEISY RACHEL D.O.
[2019-04-04 11:08] LABS: CMV IgG AB Less than 0.60 U/mL (0.00-0.59)
== END 2019-04-01 15:48 | DRG 866 ==
LOC: EEVIPCON 20:55 → ERS 20:55 → T4-A 03-28 01:25
PROVIDERS: ADMIT Family Medicine; ATTEND Family Medicine
PROC: 009U3ZX Drainage of Spinal Canal, Percutaneous Approach, Diagnostic (ICD-10-PCS; principal; 2019-03-28)
DX: B33.8 Other specified viral diseases (principal); D61.818 Other pancytopenia; I10 Essential (primary) hypertension; G40.909 Epilepsy, unspecified, not intractable, without status epilepticus; F41.9 Anxiety disorder, unspecified; F32.9 Major depressive disorder, single episode, unspecified; Z79.899 Other long term (current) drug therapy
CPT/HCPCS: 36415; 62270; 70450; 71045; 76705; 80053; 81003; 82550; 82945; 83010; 83605; 83615; 83735; 84145; 84157; 85025; 85046; 85060; 85610; 85730; 86140; 86308; 86480; 86593; 86644; 86645; 86663; 86664; 86665; 86705; 86706; 86708; 86780; 86803; 87040; 87070; 87205; 87340; 87389; 87498; 87633; 87804; 89051; 90746; 93005; 96361; 96365; 96375; J0696; J1885; J3370; J3475; J3490; J7050; Q0162